=== PATIENT | female | born 1960 | race Caucasian/White ===

== ENCOUNTER 2016-07-14 01:54 | Inpatient (IN) | payer MEDICAID ==
[~2016-07-14] VITALS: Ht 165.1 cm; Wt 63.1 kg
[2016-07-14] MEDS ORDERED: ALBUTEROL SULFATE 2.5 MG/0.5 ML NEB SOLUTION NEB ONE (02:00)
[2016-07-14] MEDS ORDERED: IPRATROPIUM BROMIDE 0.5 MG/2.5 ML NEB SOLUTION NEB ONE (02:00)
[2016-07-14] MEDS ORDERED: SODIUM BICARBONATE [ADULT] 8.4% 50 MEQ/50 ML SYRINGE IVP ONE ×3 (02:15→12:00)
[2016-07-14] MEDS ORDERED: CALCIUM CHLORIDE 100 MG/ML 10 ML SYRINGE IVP ONE ×2 (02:15→12:00)
[2016-07-14] MEDS ORDERED: SODIUM CHLORIDE 0.9% 1,000 ML IV ONE (02:15)
[2016-07-14 02:20] LABS: BASOPHILS # (AUTO) 0.07 K/uL (0.00-0.20); BASOPHILS % (AUTO) 0.7 % (0.0-2.0); EOSINOPHILS # (AUTO) 0.16 K/uL (0.00-0.70); EOSINOPHILS % (AUTO) 1.61 % (1.0-6.0); HEMATOCRIT 25.8 % (36-46); HEMOGLOBIN 8.2 g/dL (12.0-16.0); LYMPHOCYTES # (AUTO) 1.4 K/uL (1.0-4.8); LYMPHOCYTES % (AUTO) 14.2 % (22.0-44.0); MEAN CORPUSCULAR HEMOGLOBIN 29.6 pg (26.0-34.0); MEAN CORPUSCULAR HGB CONC 31.7 G/dL (31.0-37.0); MEAN CORPUSCULAR VOLUME 93 fL (80-100); MONOCYTES # (AUTO) 0.7 K/uL (0.1-1.0); MONOCYTES % (AUTO) 7.2 % (2.0-9.0); NEUTROPHILS # (AUTO) 7.4 K/uL (1.8-7.7); NEUTROPHILS % (AUTO) 76.3 % (40.0-70.0); PLATELET COUNT (AUTO) 476 K/uL (150-450); RED BLOOD CELL COUNT(AUTO) 2.76 MIL/uL (4.00-5.20); RED CELL DISTRIBUTION WIDTH 16.4 % (11.5-14.5); WHITE BLOOD COUNT (AUTO) 9.7 K/uL (4.5-11.0)
[2016-07-14] MEDS ORDERED: BUME1TAB30 PO (02:21)
[2016-07-14] MEDS ORDERED: SENN-30 PO (02:21)
[2016-07-14] MEDS ORDERED: LEVO25TA9 PO (02:21)
[2016-07-14] MEDS ORDERED: ASPI-556 PO (02:21)
[2016-07-14] MEDS ORDERED: CARB200T PO (02:21)
[2016-07-14] MEDS ORDERED: HYD25 PO (02:21)
[2016-07-14] MEDS ORDERED: FERR-89 PO (02:21)
[2016-07-14] MEDS ORDERED: SITA25 PO (02:21)
[2016-07-14] MEDS ORDERED: LANS30 PO (02:21)
[2016-07-14] MEDS ORDERED: ATOR20TA86 PO (02:21)
[2016-07-14] MEDS ORDERED: INSU100V SQ (02:21)
[2016-07-14] MEDS ORDERED: DILT90SR PO (02:21)
[2016-07-14 02:23] LABS: ABG A-A DIFF O2 585.8 mmHg (10-20.0); ABG BASE EXCESS 5.7 mmol/L (-2.0-3.0); ABG HCO3 28.9 mmol/L (22.0-26.0); ABG OXYHEMOGLOBIN 95.8 % (94.0-100.0); ABG PCO2 49 mmHg (35-45); ABG PH 7.409 (7.35-7.450); TEMPERATURE, FAHRENHEIT, BG 93.3 FAHREN (96.0-98.6)
[2016-07-14 02:25] LABS: ALLEN TEST, BLOOD GAS Positive; IPAP, BG 14 cm H2O
[2016-07-14 02:31] LABS: PROTHROMBIN TIME 10.7 SEC (9.4-11.6)
[2016-07-14 02:37] LABS: ALANINE AMINOTRANSFERASE 17 U/L (12-78); ALBUMIN 1.3 g/dL (3.4-5.0); ANION GAP 4 mmol/L (8-16); ASPARTATE AMINOTRANSFERASE 13 U/L (15-37); BILIRUBIN,TOTAL 0.3 mg/dL (0.1-1.0); CALCIUM, TOTAL 7.4 mg/dL (8.8-10.5); CARBON DIOXIDE 30 mmol/L (22-29); CHLORIDE 103 mmol/L (98-107); CREATINE KINASE, TOTAL 57 U/L (26-192); CREATININE 5.94 mg/dL (0.60-1.30); GLOMERULAR FILTR. RATE CALC 7 mL/min (>60); SODIUM SERUM 137 mmol/L (136-145); TOTAL PROTEIN, SERUM 6.8 g/dL (6.4-8.2); UREA NITROGEN, BLOOD 90 mg/dL (7-18)
[2016-07-14 02:39] LABS: AMMONIA < 10 umol/L (11-32); TROPONIN I < 0.02 ng/mL (0.00-0.05)
[2016-07-14] MEDS ORDERED: DEXTROSE 50%-WATER 25 GM/50 ML SYRINGE IVP ONE ×2 (02:45→08:00)
[2016-07-14] MEDS ORDERED: ALBUTEROL SULFATE 5 MG/ML 20 ML NEB SOLN [BULK] NEB ONE (02:45)
[2016-07-14] MEDS ORDERED: INSULIN REGULAR, HUMAN 100 UNITS/ML IVP ONE (02:45)
[2016-07-14] MEDS ORDERED: SODIUM POLYSTYRENE SULFONATE 15 GM/60 ML SUSPENSION BOTTLE PR ONE (02:45)
[2016-07-14 02:49] LABS: LACTIC ACID 1.5 mmol/L (0.4-2.0)
[2016-07-14] MEDS ORDERED: 0.9% SODIUM CHLORIDE 5 ML NEB SOLUTION NEB ONE (03:08)
[2016-07-14] MEDS ORDERED: LORazepam 2 MG/ML VIAL ONE (03:51)
[2016-07-14] MEDS ORDERED: HEPARIN SODIUM,PORCINE 5,000 UNITS/ML VIAL IVP ONE (04:00)
[2016-07-14] MEDS ORDERED: LORazepam 2 MG/ML VIAL IVP ONE (04:00)
[2016-07-14] MEDS ORDERED: BUMETANIDE 0.25 MG/ML 10 ML VIAL IVP ONE (04:15)
[2016-07-14] MEDS ORDERED: HEPARIN SODIUM,PORCINE 1,000 UNITS/ML VIAL ONE (04:52)
[2016-07-14] MEDS: SODIUM POLYSTYRENE SULFONATE 15 GM/60 ML SUSPENSION BOTTLE NG ONE ×2 (05:06→05:36)
[2016-07-14 05:16] LABS: ABG A-A DIFF O2 149.1 mmHg (10-20.0); ABG BASE EXCESS 3.3 mmol/L (-2.0-3.0); ABG HCO3 26.9 mmol/L (22.0-26.0); ABG OXYHEMOGLOBIN 89.2 % (94.0-100.0); ABG PCO2 47 mmHg (35-45); ABG PH 7.394 (7.35-7.450); TEMPERATURE, FAHRENHEIT, BG 94.3 FAHREN (96.0-98.6)
[2016-07-14 05:17] LABS: ALLEN TEST, BLOOD GAS Positive
[2016-07-14 05:23] LABS: CALCIUM, TOTAL 7.8 mg/dL (8.8-10.5); CREATININE 5.85 mg/dL (0.60-1.30)
[2016-07-14 05:23] LABS: APPEARANCE,URINE TURBID (CLEAR); GLUCOSE, URINE (UA) NEGATIVE (NEGATIVE); KETONES,URINE NEGATIVE (NEGATIVE); LEUKOCYTE ESTERASE ,URINE LARGE (NEGATIVE); OCCULT BLOOD,URINE LARGE (NEGATIVE); PROTEIN,URINE SEE CONFIRM (NEGATIVE)
[2016-07-14 05:26] LABS: ADD UA MICROSCOPIC YES
[2016-07-14 05:30] LABS: POTASSIUM 6.4 mmol/L (3.5-5.1)
[2016-07-14 06:00] LABS: WBC,URINE 51-100 /HPF (0-5)
[2016-07-14] MEDS ORDERED: 0.9% SODIUM CHLORIDE 10 ML SYRINGE IVP PRN ×2 (06:00→18:15)
[2016-07-14] MEDS ORDERED: ONDANSETRON HCL 4 MG/2 ML VIAL IVP PRN (06:00)
[2016-07-14 06:01] LABS: SQUAMOUS EPITHELIAL CELL,UR Few /LPF (None Seen)
[2016-07-14 06:03] LABS: SULFOSALICYLIC ACID,URINE 3+ (Negative)
[2016-07-14] MEDS ORDERED: CefTRIAXone 1 GM/DEXTROSE 50 ML IV ONE (06:15)
[2016-07-14 08:00] VITALS: BP 151/42
[2016-07-14] MEDS ORDERED: MANNITOL 25%-12.5 GM/50 ML VIAL IVP PRN (08:00)
[2016-07-14 08:01] LABS: GLUCOSE,POINT OF CARE 53 MG/DL (70-110)
[2016-07-14 08:57] LABS: GLUCOSE,POINT OF CARE 112 MG/DL (70-110)
[2016-07-14 10:53] LABS: CALCIUM, TOTAL 7.7 mg/dL (8.8-10.5); CREATININE 4.46 mg/dL (0.60-1.30); POTASSIUM 5.1 mmol/L (3.5-5.1)
[2016-07-14] MEDS ORDERED: DILT180C63 PO (10:53)
[2016-07-14 10:57] LABS: MAGNESIUM 2.8 mg/dL (1.80-2.40); PHOSPHORUS 5.4 mg/dL (2.5-4.9)
[2016-07-14] MEDS: BUMETANIDE 0.25 MG/ML 10 ML VIAL IVP SCH ×2 (11:17→21:45)
[2016-07-14] MEDS: PANTOPRAZOLE SODIUM 40 MG/VIAL IVP SCH (11:17)
[2016-07-14] MEDS: CefTRIAXone 1 GM/DEXTROSE 50 ML IV SCH (11:17)
[2016-07-14 12:00] VITALS: BP 116/62
[2016-07-14] MEDS ORDERED: HEPARIN SODIUM,PORCINE 1,000 UNITS/ML VIAL IVP ONE (12:00)
[2016-07-14] MEDS: CarBAMazepine 200 MG TABLET PO SCH ×2 (15:04→21:44)
[2016-07-14] MEDS: HydrOXYzine HCL 25 MG TABLET PO SCH ×2 (15:04→18:41)
[2016-07-14 16:00] VITALS: BP 138/93
[2016-07-14 17:27] VITALS: BP 132/67
[2016-07-14] MEDS: INSULIN ASPART 100 UNITS/ML SQ PRN (18:43)
[2016-07-14 18:53] LABS: CALCIUM, TOTAL 7.5 mg/dL (8.8-10.5); CREATININE 4.54 mg/dL (0.60-1.30)
[2016-07-14 19:28] VITALS: BP 126/72
[2016-07-14 20:07] LABS: GLUCOSE,POINT OF CARE 103 MG/DL (70-110)
[2016-07-15] VITALS (10 sets, daily range): BP systolic 132–149; BP diastolic 61–85
[2016-07-15] MEDS ORDERED: VANCOMYCIN HCL 1 GM/D5% WATER 200 ML IV ONE
[2016-07-15] MEDS ORDERED: VANCOMYCIN HCL 1 GM/D5% WATER 200 ML IV PRN (00:15)
[2016-07-15] MEDS ORDERED: SODIUM CHLORIDE 0.9% 500 ML IV ONE ×2 (00:16→12:04)
[2016-07-15] MEDS ORDERED: VANCOMYCIN HCL 1.25 GM in DEXTROSE 5%-WATER 250 ML IV ONE (00:30)
[2016-07-15] MEDS: HydrOXYzine HCL 25 MG TABLET PO SCH ×5 (00:39→23:31)
[2016-07-15] MEDS: INSULIN ASPART 100 UNITS/ML SQ PRN ×2 (06:08→12:25)
[2016-07-15] MEDS ORDERED: LEVOTHYROXINE SODIUM 25 MCG TABLET PO SCH (06:30)
[2016-07-15 07:46] LABS: HEMOGLOBIN A1C 5.1 % (4.5-6.2)
[2016-07-15 07:47] LABS: BASOPHILS # (AUTO) 0.02 K/uL (0.00-0.20); BASOPHILS % (AUTO) 0.2 % (0.0-2.0); EOSINOPHILS # (AUTO) 0.07 K/uL (0.00-0.70); EOSINOPHILS % (AUTO) 0.58 % (1.0-6.0); LYMPHOCYTES # (AUTO) 0.8 K/uL (1.0-4.8); MEAN CORPUSCULAR HEMOGLOBIN 30.3 pg (26.0-34.0); MEAN CORPUSCULAR VOLUME 92 fL (80-100); MONOCYTES % (AUTO) 8.2 % (2.0-9.0); NEUTROPHILS # (AUTO) 10.1 K/uL (1.8-7.7); NEUTROPHILS % (AUTO) 84.1 % (40.0-70.0); PLATELET COUNT (AUTO) 350 K/uL (150-450); RED BLOOD CELL COUNT(AUTO) 2.27 MIL/uL (4.00-5.20); RED CELL DISTRIBUTION WIDTH 16.6 % (11.5-14.5); WHITE BLOOD COUNT (AUTO) 12.1 K/uL (4.5-11.0)
[2016-07-15 08:01] LABS: GLUCOSE COMMENT 1 Received Meds; GLUCOSE,POINT OF CARE 141 MG/DL (70-110)
[2016-07-15 08:12] LABS: CALCIUM, TOTAL 7.1 mg/dL (8.8-10.5); CHOL/HDL RATIO 1.6 (3.9-5.7); CREATININE 4.62 mg/dL (0.60-1.30); MAGNESIUM 2.8 mg/dL (1.80-2.40); PHOSPHORUS 5.7 mg/dL (2.5-4.9); POTASSIUM 4.7 mmol/L (3.5-5.1); THYROID STIMULATING HORMONE 6.48 uIU/mL (0.36-3.74)
[2016-07-15 08:16] LABS: HEMOGLOBIN 6.9 g/dL (12.0-16.0)
[2016-07-15 08:17] LABS: HEMATOCRIT 20.8 % (36-46)
[2016-07-15] MEDS: DILTIAZEM HCL CD 180 MG ER CAPSULE PO SCH (10:02)
[2016-07-15] MEDS: FERROUS SULFATE 325 MG EC TABLET PO SCH (10:02)
[2016-07-15] MEDS: BUMETANIDE 0.25 MG/ML 10 ML VIAL IVP SCH ×2 (10:06→20:05)
[2016-07-15] MEDS: ASPIRIN 81 MG CHEWABLE TABLET PO SCH (10:07)
[2016-07-15] MEDS: PANTOPRAZOLE SODIUM 40 MG/VIAL IVP SCH (10:07)
[2016-07-15] MEDS: SitaGLIPtin PHOSPHATE 25 MG TABLET PO SCH (10:08)
[2016-07-15] MEDS: ATORVASTATIN CALCIUM 20 MG TABLET PO SCH (10:08)
[2016-07-15] MEDS: SENNA/DOCUSATE SODIUM 187-50 MG TABLET PO SCH (10:09)
[2016-07-15 10:12] LABS: HEMATOCRIT 23.2 % (36-46); HEMOGLOBIN 7.3 g/dL (12.0-16.0)
[2016-07-15] MEDS: SOD FERRIC GLUC COMPLX/SUCROSE 125 MG in SODIUM CHLORIDE 0.9% 100 ML IV SCH (10:31)
[2016-07-15] MEDS ORDERED: HEPARIN SODIUM,PORCINE 1,000 UNITS/ML VIAL IVP ONE ×3 (12:00→12:30)
[2016-07-15] MEDS ORDERED: MANNITOL 25%-12.5 GM/50 ML VIAL IVP PRN (12:30)
[2016-07-15 13:26] LABS: GLUCOSE,POINT OF CARE 93 MG/DL (70-110)
[2016-07-15] MEDS: CefTRIAXone 1 GM/DEXTROSE 50 ML IV SCH (16:06)
[2016-07-15] MEDS: INSULIN REGULAR, HUMAN 100 UNITS/ML SQ PRN (17:44)
[2016-07-15] MEDS ORDERED: AMINO ACIDS/PROTEIN HYDROLYS 30 ML TUBE NG SCH (18:00)
[2016-07-15] MEDS ORDERED: IVERMECTIN 3 MG TABLET PO ONE (22:30)
[2016-07-16] MEDS: INSULIN REGULAR, HUMAN 100 UNITS/ML SQ PRN (00:18)
[2016-07-16 04:25] VITALS: BP 143/79
[2016-07-16] MEDS: HydrOXYzine HCL 25 MG TABLET PO SCH ×4 (05:36→23:52)
[2016-07-16] MEDS: LEVOTHYROXINE SODIUM 50 MCG TABLET PO SCH (05:36)
[2016-07-16 07:49] LABS: BASOPHILS % (AUTO) 0.1 % (0.0-2.0); EOSINOPHILS % (AUTO) 0.3 % (1.0-6.0); HEMATOCRIT 26.9 % (36-46); HEMOGLOBIN 8.6 g/dL (12.0-16.0); LYMPHOCYTES # (AUTO) 1.1 K/uL (1.0-4.8); LYMPHOCYTES % (AUTO) 6.5 % (22.0-44.0); MEAN CORPUSCULAR HEMOGLOBIN 29.8 pg (26.0-34.0); MEAN CORPUSCULAR VOLUME 93 fL (80-100); MONOCYTES # (AUTO) 1.5 K/uL (0.1-1.0); MONOCYTES % (AUTO) 8.3 % (2.0-9.0); NEUTROPHILS # (AUTO) 14.9 K/uL (1.8-7.7); NEUTROPHILS % (AUTO) 84.8 % (40.0-70.0); PLATELET COUNT (AUTO) 334 K/uL (150-450); RED CELL DISTRIBUTION WIDTH 16.3 % (11.5-14.5); WHITE BLOOD COUNT (AUTO) 17.6 K/uL (4.5-11.0)
[2016-07-16 07:51] VITALS: BP 139/71
[2016-07-16 08:06] LABS: CALCIUM, TOTAL 7.9 mg/dL (8.8-10.5); CREATININE 3.18 mg/dL (0.60-1.30); MAGNESIUM 2.4 mg/dL (1.80-2.40); PHOSPHORUS 4.1 mg/dL (2.5-4.9); POTASSIUM 3.8 mmol/L (3.5-5.1)
[2016-07-16] MEDS: BUMETANIDE 0.25 MG/ML 10 ML VIAL IVP SCH ×2 (09:26→20:55)
[2016-07-16] MEDS: PANTOPRAZOLE SODIUM 40 MG/VIAL IVP SCH (09:26)
[2016-07-16] MEDS: ASPIRIN 81 MG CHEWABLE TABLET PO SCH (09:26)
[2016-07-16] MEDS: SitaGLIPtin PHOSPHATE 25 MG TABLET PO SCH (09:26)
[2016-07-16] MEDS: DILTIAZEM HCL CD 180 MG ER CAPSULE PO SCH (09:26)
[2016-07-16] MEDS: FERROUS SULFATE 325 MG EC TABLET PO SCH (09:27)
[2016-07-16] MEDS: SENNA/DOCUSATE SODIUM 187-50 MG TABLET PO SCH (09:27)
[2016-07-16] MEDS: VITAMIN B COMP/VIT C/FOLIC ACID CAPSULE NG SCH (09:27)
[2016-07-16] MEDS: SOD FERRIC GLUC COMPLX/SUCROSE 125 MG in SODIUM CHLORIDE 0.9% 100 ML IV SCH (09:31)
[2016-07-16] MEDS: EPOETIN ALFA 10,000 UNITS/ML VIAL SQ SCH (09:31)
[2016-07-16] MEDS: MINERAL OIL/PETROLATUM 120 GM CREAM TP SCH (09:32)
[2016-07-16] MEDS: ATORVASTATIN CALCIUM 20 MG TABLET PO SCH (09:35)
[2016-07-16] MEDS: AMINO ACIDS/PROTEIN HYDROLYS 30 ML TUBE NG SCH ×2 (09:40→18:30)
[2016-07-16 11:39] VITALS: BP 143/86
[2016-07-16] MEDS: CefTRIAXone 1 GM/DEXTROSE 50 ML IV SCH (11:43)
[2016-07-16 12:12] LABS: TOTAL PROTEIN, SERUM 6.8 g/dL (6.4-8.2)
[2016-07-16 12:39] LABS: IGG (IMMUNOFIXATION) 2008 mg/dL (700-1600)
[2016-07-16] MEDS ORDERED: INDIUM IN-111 OXYQUINOLINE/.5MCL ISOTOPE 1 EA INJ INJ ONE (15:25)
[2016-07-16] MEDS: VITAMINS A & D 60 GM OINTMENT TP SCH ×2 (17:38→22:01)
[2016-07-16 18:03] VITALS: BP 155/74
[2016-07-16] MEDS: CefoTEtan DISODIUM 0.5 GM in DEXTROSE 5%-WATER 50 ML IV SCH (18:33)
[2016-07-16 18:37] LABS: GLUCOSE,POINT OF CARE 136 MG/DL (70-110)
[2016-07-16 18:47] LABS: GLUCOSE,POINT OF CARE 140 MG/DL (70-110)
[2016-07-16 18:59] LABS: APPEARANCE,UNSPUN,BODY FLUID CLOUDY (CLEAR)
[2016-07-16 19:00] LABS: COLOR,BODY FLUID YELLOW (LT YELLOW); PH, BODY FLUID 7
[2016-07-16 19:21] VITALS: BP 151/71
[2016-07-16] MEDS: INSULIN ASPART 100 UNITS/ML SQ PRN (20:35)
[2016-07-16 23:27] VITALS: BP 143/75
[2016-07-17] MEDS: HYDROCODONE/ACETAMINOPHEN 5-325 MG TABLET PO PRN ×2 (00:07→06:22)
[2016-07-17 00:31] LABS: GLUCOSE COMMENT 1 Received Meds; GLUCOSE,POINT OF CARE 158 MG/DL (70-110)
[2016-07-17 04:34] VITALS: BP 139/71
[2016-07-17 04:48] LABS: ALBUMIN/GLOBULIN RAITO (PEP) 0.5 (0.7-1.7); ALPHA-1 GLOBULINS(PEP) 0.2 g/dL (0.0-0.4); ALPHA-2 GLOBULINS (PEP) 0.7 g/dL (0.4-1.0); BETA (PEP) 0.7 g/dL (0.7-1.3); GLOBULIN TOTAL (PEP) 3.7 g/dL (2.2-3.9); M-SPIKE (PEP) Not Observed g/dL (Not Observed); TOTAL PROTEIN 5.5 g/dL (6.0-8.5)
[2016-07-17] MEDS: DEXTROSE 50%-WATER 25 GM/50 ML SYRINGE IVP PRN (06:15)
[2016-07-17] MEDS: HydrOXYzine HCL 25 MG TABLET PO SCH ×3 (06:22→18:07)
[2016-07-17 06:25] LABS: BASOPHILS % (AUTO) 1.1 % (0.0-2.0); EOSINOPHILS % (AUTO) 3.6 % (1.0-6.0); HEMATOCRIT 26.5 % (36-46); HEMOGLOBIN 8.3 g/dL (12.0-16.0); LYMPHOCYTES # (AUTO) 1.3 K/uL (1.0-4.8); LYMPHOCYTES % (AUTO) 10.5 % (22.0-44.0); MEAN CORPUSCULAR HEMOGLOBIN 29.2 pg (26.0-34.0); MEAN CORPUSCULAR HGB CONC 31.4 G/dL (31.0-37.0); MEAN CORPUSCULAR VOLUME 93 fL (80-100); MONOCYTES # (AUTO) 1.2 K/uL (0.1-1.0); NEUTROPHILS # (AUTO) 9.4 K/uL (1.8-7.7); NEUTROPHILS % (AUTO) 74.8 % (40.0-70.0); PLATELET COUNT (AUTO) 320 K/uL (150-450); RED BLOOD CELL COUNT(AUTO) 2.85 MIL/uL (4.00-5.20); RED CELL DISTRIBUTION WIDTH 15.8 % (11.5-14.5); WHITE BLOOD COUNT (AUTO) 12.5 K/uL (4.5-11.0)
[2016-07-17] MEDS: LEVOTHYROXINE SODIUM 50 MCG TABLET PO SCH (06:37)
[2016-07-17 07:19] LABS: CALCIUM, TOTAL 7.5 mg/dL (8.8-10.5); CREATININE 3.59 mg/dL (0.60-1.30); MAGNESIUM 2.3 mg/dL (1.80-2.40); PHOSPHORUS 4.1 mg/dL (2.5-4.9); POTASSIUM 3.9 mmol/L (3.5-5.1)
[2016-07-17 07:37] LABS: COMPLEMENT C3 56 mg/dL (82-167); COMPLEMENT C4 41 mg/dL (14-44)
[2016-07-17] MEDS: AMINO ACIDS/PROTEIN HYDROLYS 30 ML TUBE NG SCH ×2 (08:10→18:03)
[2016-07-17 08:13] VITALS: BP 143/58
[2016-07-17] MEDS ORDERED: VANCOMYCIN HCL 1.25 GM in DEXTROSE 5%-WATER 250 ML IV ONE (08:15)
[2016-07-17] MEDS: VITAMINS A & D 60 GM OINTMENT TP SCH ×2 (08:17→21:31)
[2016-07-17] MEDS ORDERED: SODIUM CHLORIDE 0.9% 2,000 ML IV ONE (09:37)
[2016-07-17 12:03] VITALS: BP 159/84
[2016-07-17] MEDS ORDERED: SODIUM CHLORIDE 0.9% 1,000 ML IV ONE (12:53)
[2016-07-17] MEDS: SitaGLIPtin PHOSPHATE 25 MG TABLET PO SCH (14:45)
[2016-07-17] MEDS: DILTIAZEM HCL CD 180 MG ER CAPSULE PO SCH (14:45)
[2016-07-17] MEDS: SENNA/DOCUSATE SODIUM 187-50 MG TABLET PO SCH (14:46)
[2016-07-17] MEDS: PANTOPRAZOLE SODIUM 40 MG/VIAL IVP SCH (14:46)
[2016-07-17] MEDS: BUMETANIDE 0.25 MG/ML 10 ML VIAL IVP SCH ×2 (14:46→21:29)
[2016-07-17] MEDS: ATORVASTATIN CALCIUM 20 MG TABLET PO SCH (14:46)
[2016-07-17] MEDS: VITAMIN B COMP/VIT C/FOLIC ACID CAPSULE NG SCH (14:46)
[2016-07-17] MEDS: FERROUS SULFATE 325 MG EC TABLET PO SCH (14:46)
[2016-07-17] MEDS: MINERAL OIL/PETROLATUM 120 GM CREAM TP SCH (14:47)
[2016-07-17] MEDS: SOD FERRIC GLUC COMPLX/SUCROSE 125 MG in SODIUM CHLORIDE 0.9% 100 ML IV SCH (14:49)
[2016-07-17 16:09] VITALS: BP 155/75
[2016-07-17] MEDS ORDERED: HEPARIN SODIUM,PORCINE 1,000 UNITS/ML VIAL IVP ONE (16:44)
[2016-07-17] MEDS: CefoTEtan DISODIUM 0.5 GM in DEXTROSE 5%-WATER 50 ML IV SCH (18:13)
[2016-07-17 18:23] LABS: TOTAL PROTEIN,BODY FLUID,REF 1.8 g/dL
[2016-07-17 19:16] VITALS: BP 151/74
[2016-07-17 19:56] LABS: GLUCOSE,POINT OF CARE 91 MG/DL (70-110)
[2016-07-17] MEDS: INSULIN ASPART 100 UNITS/ML SQ PRN (21:35)
[2016-07-17 23:43] VITALS: BP 149/67
[2016-07-18] MEDS: HydrOXYzine HCL 25 MG TABLET PO SCH ×4 (00:13→20:25)
[2016-07-18 04:03] VITALS: BP 140/68
[2016-07-18] MEDS: LEVOTHYROXINE SODIUM 50 MCG TABLET PO SCH (05:57)
[2016-07-18] MEDS: INSULIN ASPART 100 UNITS/ML SQ PRN (06:02)
[2016-07-18 07:01] LABS: BASOPHILS # (AUTO) 0.03 K/uL (0.00-0.20); BASOPHILS % (AUTO) 0.3 % (0.0-2.0); EOSINOPHILS # (AUTO) 0.19 K/uL (0.00-0.70); EOSINOPHILS % (AUTO) 1.69 % (1.0-6.0); HEMATOCRIT 30.7 % (36-46); HEMOGLOBIN 9.9 g/dL (12.0-16.0); LYMPHOCYTES # (AUTO) 1.4 K/uL (1.0-4.8); LYMPHOCYTES % (AUTO) 12.1 % (22.0-44.0); MEAN CORPUSCULAR HEMOGLOBIN 30.1 pg (26.0-34.0); MEAN CORPUSCULAR HGB CONC 32.4 G/dL (31.0-37.0); MEAN CORPUSCULAR VOLUME 93 fL (80-100); MONOCYTES # (AUTO) 1.1 K/uL (0.1-1.0); MONOCYTES % (AUTO) 10.1 % (2.0-9.0); NEUTROPHILS # (AUTO) 8.6 K/uL (1.8-7.7); NEUTROPHILS % (AUTO) 75.9 % (40.0-70.0); PLATELET COUNT (AUTO) 336 K/uL (150-450); RED BLOOD CELL COUNT(AUTO) 3.31 MIL/uL (4.00-5.20); RED CELL DISTRIBUTION WIDTH 15.6 % (11.5-14.5); WHITE BLOOD COUNT (AUTO) 11.3 K/uL (4.5-11.0)
[2016-07-18 07:23] VITALS: BP 146/80
[2016-07-18 07:33] LABS: CALCIUM, TOTAL 7.6 mg/dL (8.8-10.5); CREATININE 2.33 mg/dL (0.60-1.30); MAGNESIUM 1.9 mg/dL (1.80-2.40); POTASSIUM 3.5 mmol/L (3.5-5.1)
[2016-07-18] MEDS: AMINO ACIDS/PROTEIN HYDROLYS 30 ML TUBE NG SCH ×2 (08:00→18:00)
[2016-07-18] MEDS: ATORVASTATIN CALCIUM 20 MG TABLET PO SCH (09:00)
[2016-07-18] MEDS: SENNA/DOCUSATE SODIUM 187-50 MG TABLET PO SCH (09:00)
[2016-07-18] MEDS: VITAMIN B COMP/VIT C/FOLIC ACID CAPSULE NG SCH (09:00)
[2016-07-18] MEDS: EPOETIN ALFA 10,000 UNITS/ML VIAL SQ SCH (09:00)
[2016-07-18 11:23] VITALS: BP 129/59
[2016-07-18] MEDS: PANTOPRAZOLE SODIUM 40 MG/VIAL IVP SCH (13:08)
[2016-07-18] MEDS: BUMETANIDE 0.25 MG/ML 10 ML VIAL IVP SCH ×2 (13:10→21:00)
[2016-07-18] MEDS: SOD FERRIC GLUC COMPLX/SUCROSE 125 MG in SODIUM CHLORIDE 0.9% 100 ML IV SCH (13:11)
[2016-07-18] MEDS: MINERAL OIL/PETROLATUM 120 GM CREAM TP SCH (13:24)
[2016-07-18] MEDS: VITAMINS A & D 60 GM OINTMENT TP SCH ×2 (13:24→20:26)
[2016-07-18] MEDS: MetroNIDAZOLE 500 MG TABLET PO SCH ×2 (15:11→20:26)
[2016-07-18] MEDS: FERROUS SULFATE 325 MG EC TABLET PO SCH (15:12)
[2016-07-18] MEDS: SitaGLIPtin PHOSPHATE 25 MG TABLET PO SCH (15:14)
[2016-07-18] MEDS: DILTIAZEM HCL CD 180 MG ER CAPSULE PO SCH (15:24)
[2016-07-18 16:22] VITALS: BP 140/66
[2016-07-18 16:53] LABS: GLUCOSE,POINT OF CARE 77 MG/DL (70-110)
[2016-07-18] MEDS: CefoTEtan DISODIUM 0.5 GM in DEXTROSE 5%-WATER 50 ML IV SCH (18:39)
[2016-07-18] MEDS: HYDROCODONE/ACETAMINOPHEN 5-325 MG TABLET PO PRN (18:39)
[2016-07-18 19:30] VITALS: BP 137/66
[2016-07-18 23:57] VITALS: BP 128/59
[2016-07-19 03:44] VITALS: BP 139/70
[2016-07-19] MEDS: HydrOXYzine HCL 25 MG TABLET PO SCH ×4 (06:00→17:25)
[2016-07-19 06:17] LABS: CALCIUM, TOTAL 7.5 mg/dL (8.8-10.5); CREATININE 2.83 mg/dL (0.60-1.30); POTASSIUM 3.2 mmol/L (3.5-5.1); TOTAL PROTEIN, SERUM 6.2 g/dL (6.4-8.2)
[2016-07-19] MEDS: LEVOTHYROXINE SODIUM 50 MCG TABLET PO SCH (06:30)
[2016-07-19 07:19] VITALS: BP 145/73
[2016-07-19] MEDS: AMINO ACIDS/PROTEIN HYDROLYS 30 ML TUBE NG SCH ×2 (08:00→18:00)
[2016-07-19] MEDS ORDERED: VANCOMYCIN HCL 1 GM/D5% WATER 200 ML IV ONE (08:00)
[2016-07-19 08:28] LABS: ALPHA-1 URINE (ELP) 2.9 %; ALPHA-2 URINE(ELP) 6.2 %; BETA URINE(ELP) 12.5 %; GAMMA URINE(ELP) 34.3 %; TOTAL PROTEIN URINE 379.5 mg/dL (Not Estab.)
[2016-07-19] MEDS: SENNA/DOCUSATE SODIUM 187-50 MG TABLET PO SCH (09:00)
[2016-07-19] MEDS: MetroNIDAZOLE 500 MG TABLET PO SCH ×3 (09:00→21:07)
[2016-07-19] MEDS: VITAMINS A & D 60 GM OINTMENT TP SCH (09:00)
[2016-07-19] MEDS: MINERAL OIL/PETROLATUM 120 GM CREAM TP SCH (10:00)
[2016-07-19] MEDS ORDERED: SODIUM CHLORIDE 0.9% 2,000 ML IV ONE (11:37)
[2016-07-19 11:59] LABS: GLUCOSE,POINT OF CARE 85 MG/DL (70-110)
[2016-07-19] MEDS ORDERED: ALBUMIN HUMAN 25%-12.5GM/50ML IV BOTTLE IV PRN (13:15)
[2016-07-19] MEDS ORDERED: MANNITOL 25%-12.5 GM/50 ML VIAL IVP PRN (13:15)
[2016-07-19 13:26] LABS: APPEARANCE,UNSPUN,BODY FLUID HAZY (CLEAR)
[2016-07-19 13:27] LABS: COLOR,BODY FLUID YELLOW (LT YELLOW)
[2016-07-19 15:27] VITALS: BP 109/59
[2016-07-19] MEDS: SOD FERRIC GLUC COMPLX/SUCROSE 125 MG in SODIUM CHLORIDE 0.9% 100 ML IV SCH (16:04)
[2016-07-19] MEDS: DILTIAZEM HCL CD 180 MG ER CAPSULE PO SCH (17:14)
[2016-07-19] MEDS: FERROUS SULFATE 325 MG EC TABLET PO SCH (17:15)
[2016-07-19] MEDS: BUMETANIDE 0.25 MG/ML 10 ML VIAL IVP SCH ×2 (17:15→21:08)
[2016-07-19] MEDS: PANTOPRAZOLE SODIUM 40 MG/VIAL IVP SCH (17:16)
[2016-07-19] MEDS: SitaGLIPtin PHOSPHATE 25 MG TABLET PO SCH (17:16)
[2016-07-19] MEDS: VITAMIN B COMP/VIT C/FOLIC ACID CAPSULE NG SCH (17:16)
[2016-07-19] MEDS: ATORVASTATIN CALCIUM 20 MG TABLET PO SCH (17:16)
[2016-07-19] MEDS: CarBAMazepine 200 MG TABLET PO SCH ×2 (17:18→21:07)
[2016-07-19] MEDS: CefoTEtan DISODIUM 0.5 GM in DEXTROSE 5%-WATER 50 ML IV SCH (18:17)
[2016-07-19] MEDS: INSULIN ASPART 100 UNITS/ML SQ PRN ×2 (18:30→21:16)
[2016-07-19 20:09] VITALS: BP 124/64
[2016-07-20] VITALS (7 sets, daily range): BP systolic 120–142; BP diastolic 56–62
[2016-07-20] MEDS: HydrOXYzine HCL 25 MG TABLET PO SCH ×6 (00:17→23:35)
[2016-07-20] MEDS: VITAMINS A & D 60 GM OINTMENT TP SCH ×3 (00:18→21:31)
[2016-07-20] MEDS: LEVOTHYROXINE SODIUM 50 MCG TABLET PO SCH (06:30)
[2016-07-20 06:48] LABS: CALCIUM, TOTAL 7.8 mg/dL (8.8-10.5); CREATININE 2.01 mg/dL (0.60-1.30); POTASSIUM 3.4 mmol/L (3.5-5.1)
[2016-07-20] MEDS ORDERED: HEPARIN SODIUM,PORCINE 1,000 UNITS/ML 10 ML VIAL ONE (07:51)
[2016-07-20] MEDS ORDERED: HEPARIN SODIUM 1000 UNITS/NS 500 ML ONE (07:51)
[2016-07-20] MEDS ORDERED: LIDOCAINE HCL/PF 1% 30 ML VIAL ONE (07:51)
[2016-07-20] MEDS: AMINO ACIDS/PROTEIN HYDROLYS 30 ML TUBE NG SCH ×2 (08:00→18:00)
[2016-07-20] MEDS ORDERED: LIDOCAINE HCL 1%/EPI 1:200,000/PF 10 ML VIAL ONE (08:34)
[2016-07-20] MEDS ORDERED: MIDAZOLAM HCL 2 MG/2 ML VIAL ONE (08:35)
[2016-07-20] MEDS ORDERED: FentaNYL CITRATE-PF 100 MCG/2 ML VIAL ONE (08:35)
[2016-07-20] MEDS ORDERED: MIDAZOLAM HCL 2 MG/2 ML VIAL IVP ONE (09:33)
[2016-07-20] MEDS ORDERED: FentaNYL CITRATE-PF 100 MCG/2 ML VIAL IVP ONE (09:38)
[2016-07-20] MEDS: DILTIAZEM HCL CD 180 MG ER CAPSULE PO SCH ×2 (10:00→11:27)
[2016-07-20] MEDS: ATORVASTATIN CALCIUM 20 MG TABLET PO SCH ×2 (11:00→11:28)
[2016-07-20] MEDS: CarBAMazepine 200 MG TABLET PO SCH ×4 (11:00→21:07)
[2016-07-20] MEDS: FERROUS SULFATE 325 MG EC TABLET PO SCH ×2 (11:00→11:29)
[2016-07-20] MEDS: MetroNIDAZOLE 500 MG TABLET PO SCH ×4 (11:00→21:07)
[2016-07-20] MEDS: VITAMIN B COMP/VIT C/FOLIC ACID CAPSULE NG SCH ×2 (11:00→11:28)
[2016-07-20] MEDS: SENNA/DOCUSATE SODIUM 187-50 MG TABLET PO SCH ×2 (11:00→11:28)
[2016-07-20] MEDS: SitaGLIPtin PHOSPHATE 25 MG TABLET PO SCH ×2 (11:00→11:27)
[2016-07-20] MEDS: PANTOPRAZOLE SODIUM 40 MG/VIAL IVP SCH (11:26)
[2016-07-20] MEDS: BUMETANIDE 0.25 MG/ML 10 ML VIAL IVP SCH ×2 (11:26→21:07)
[2016-07-20] MEDS: EPOETIN ALFA 10,000 UNITS/ML VIAL SQ SCH (11:27)
[2016-07-20] MEDS: MINERAL OIL/PETROLATUM 120 GM CREAM TP SCH (11:31)
[2016-07-20] MEDS: SOD FERRIC GLUC COMPLX/SUCROSE 125 MG in SODIUM CHLORIDE 0.9% 100 ML IV SCH (12:00)
[2016-07-20] MEDS: HYDROCODONE/ACETAMINOPHEN 5-325 MG TABLET PO PRN (12:00)
[2016-07-20 13:53] LABS: GLUCOSE,POINT OF CARE 83 MG/DL (70-110)
[2016-07-20] MEDS: CefoTEtan DISODIUM 0.5 GM in DEXTROSE 5%-WATER 50 ML IV SCH (17:14)
[2016-07-20 19:33] LABS: TOTAL PROTEIN,BODY FLUID,REF 2.2 g/dL
[2016-07-20] MEDS ORDERED: 0.9% SODIUM CHLORIDE 10 ML SYRINGE IVP PRN (20:15)
[2016-07-20] MEDS: INSULIN ASPART 100 UNITS/ML SQ PRN (21:30)
[2016-07-21] VITALS (7 sets, daily range): BP systolic 139–153; BP diastolic 62–75
[2016-07-21] MEDS: HydrOXYzine HCL 25 MG TABLET PO SCH ×4 (06:22→23:47)
[2016-07-21] MEDS: LEVOTHYROXINE SODIUM 50 MCG TABLET PO SCH (06:22)
[2016-07-21 07:27] LABS: GLUCOSE COMMENT 1 Received Meds; GLUCOSE,POINT OF CARE 166 MG/DL (70-110)
[2016-07-21 07:27] LABS: GLUCOSE,POINT OF CARE 91 MG/DL (70-110)
[2016-07-21] MEDS: AMINO ACIDS/PROTEIN HYDROLYS 30 ML TUBE NG SCH ×2 (08:00→18:00)
[2016-07-21 09:03] LABS: BASOPHILS % (AUTO) 0.5 % (0.0-2.0); EOSINOPHILS % (AUTO) 3.3 % (1.0-6.0); HEMATOCRIT 27.5 % (36-46); HEMOGLOBIN 8.6 g/dL (12.0-16.0); LYMPHOCYTES # (AUTO) 1.3 K/uL (1.0-4.8); LYMPHOCYTES % (AUTO) 10.6 % (22.0-44.0); MEAN CORPUSCULAR HEMOGLOBIN 29.1 pg (26.0-34.0); MEAN CORPUSCULAR HGB CONC 31.2 G/dL (31.0-37.0); MEAN CORPUSCULAR VOLUME 93 fL (80-100); MONOCYTES # (AUTO) 1.5 K/uL (0.1-1.0); MONOCYTES % (AUTO) 11.6 % (2.0-9.0); NEUTROPHILS # (AUTO) 9.4 K/uL (1.8-7.7); PLATELET COUNT (AUTO) 341 K/uL (150-450); RED BLOOD CELL COUNT(AUTO) 2.94 MIL/uL (4.00-5.20); RED CELL DISTRIBUTION WIDTH 16.4 % (11.5-14.5); WHITE BLOOD COUNT (AUTO) 12.7 K/uL (4.5-11.0)
[2016-07-21 09:04] LABS: CALCIUM, TOTAL 7.7 mg/dL (8.8-10.5); CREATININE 2.54 mg/dL (0.60-1.30); POTASSIUM 3.3 mmol/L (3.5-5.1)
[2016-07-21] MEDS: HYDROCODONE/ACETAMINOPHEN 5-325 MG TABLET PO PRN ×2 (12:38→23:47)
[2016-07-21] MEDS: BUMETANIDE 0.25 MG/ML 10 ML VIAL IVP SCH ×2 (12:50→21:21)
[2016-07-21] MEDS: PANTOPRAZOLE SODIUM 40 MG/VIAL IVP SCH (12:50)
[2016-07-21] MEDS: SOD FERRIC GLUC COMPLX/SUCROSE 125 MG in SODIUM CHLORIDE 0.9% 100 ML IV SCH (12:55)
[2016-07-21] MEDS: DILTIAZEM HCL CD 180 MG ER CAPSULE PO SCH (15:46)
[2016-07-21] MEDS: ATORVASTATIN CALCIUM 20 MG TABLET PO SCH (15:47)
[2016-07-21] MEDS: SENNA/DOCUSATE SODIUM 187-50 MG TABLET PO SCH (15:47)
[2016-07-21] MEDS: SitaGLIPtin PHOSPHATE 25 MG TABLET PO SCH (15:47)
[2016-07-21] MEDS: FERROUS SULFATE 325 MG EC TABLET PO SCH (15:47)
[2016-07-21] MEDS: MetroNIDAZOLE 500 MG TABLET PO SCH ×3 (15:47→21:21)
[2016-07-21] MEDS: VITAMIN B COMP/VIT C/FOLIC ACID CAPSULE NG SCH (15:48)
[2016-07-21] MEDS: VITAMINS A & D 60 GM OINTMENT TP SCH ×2 (15:48→21:49)
[2016-07-21] MEDS: MINERAL OIL/PETROLATUM 120 GM CREAM TP SCH (15:49)
[2016-07-21] MEDS ORDERED: HEPARIN SODIUM,PORCINE 1,000 UNITS/ML VIAL IVP ONE ×2 (16:16→18:33)
[2016-07-21] MEDS: CefoTEtan DISODIUM 0.5 GM in DEXTROSE 5%-WATER 50 ML IV SCH (19:39)
[2016-07-21 20:12] LABS: GLUCOSE,POINT OF CARE 94 MG/DL (70-110)
[2016-07-21 20:12] LABS: GLUCOSE,POINT OF CARE 115 MG/DL (70-110)
[2016-07-21] MEDS: CarBAMazepine 200 MG TABLET PO SCH (21:21)
[2016-07-22 03:47] LABS: GLUCOSE,POINT OF CARE 100 MG/DL (70-110)
[2016-07-22 05:32] VITALS: BP 128/56
[2016-07-22] MEDS: HydrOXYzine HCL 25 MG TABLET PO SCH ×4 (05:37→23:32)
[2016-07-22] MEDS: LEVOTHYROXINE SODIUM 50 MCG TABLET PO SCH (05:37)
[2016-07-22] MEDS: DEXTROSE 50%-WATER 25 GM/50 ML SYRINGE IVP PRN (05:47)
[2016-07-22 07:12] LABS: GLUCOSE,POINT OF CARE 119 MG/DL (70-110)
[2016-07-22 07:12] LABS: GLUCOSE COMMENT 1 Juice/Food/D50 Given; GLUCOSE,POINT OF CARE 65 MG/DL (70-110)
[2016-07-22 07:25] VITALS: BP 128/58
[2016-07-22] MEDS ORDERED: VANCOMYCIN HCL 1 GM/D5% WATER 200 ML IV ONE (08:00)
[2016-07-22] MEDS: AMINO ACIDS/PROTEIN HYDROLYS 30 ML TUBE NG SCH ×2 (08:00→18:00)
[2016-07-22] MEDS: MetroNIDAZOLE 500 MG TABLET PO SCH ×3 (09:00→20:14)
[2016-07-22] MEDS: SENNA/DOCUSATE SODIUM 187-50 MG TABLET PO SCH (09:00)
[2016-07-22] MEDS ORDERED: IVERMECTIN 3 MG TABLET PO ONE (09:00)
[2016-07-22] MEDS: HYDROCODONE/ACETAMINOPHEN 5-325 MG TABLET PO PRN ×2 (09:28→23:31)
[2016-07-22] MEDS: BUMETANIDE 0.25 MG/ML 10 ML VIAL IVP SCH ×2 (09:28→20:14)
[2016-07-22] MEDS: DILTIAZEM HCL CD 180 MG ER CAPSULE PO SCH (09:30)
[2016-07-22] MEDS: PANTOPRAZOLE SODIUM 40 MG/VIAL IVP SCH (09:30)
[2016-07-22] MEDS: SitaGLIPtin PHOSPHATE 25 MG TABLET PO SCH (09:30)
[2016-07-22] MEDS: VITAMINS A & D 60 GM OINTMENT TP SCH ×2 (09:31→20:14)
[2016-07-22] MEDS: CarBAMazepine 200 MG TABLET PO SCH ×2 (09:31→20:14)
[2016-07-22] MEDS: MINERAL OIL/PETROLATUM 120 GM CREAM TP SCH (09:31)
[2016-07-22] MEDS: FERROUS SULFATE 325 MG EC TABLET PO SCH (09:32)
[2016-07-22] MEDS ORDERED: SODIUM CHLORIDE 0.9% 500 ML IV ONE (09:37)
[2016-07-22 11:56] VITALS: BP 129/55
[2016-07-22] MEDS: INSULIN ASPART 100 UNITS/ML SQ PRN ×2 (11:57→18:10)
[2016-07-22 16:45] VITALS: BP 130/56
[2016-07-22] MEDS: ATORVASTATIN CALCIUM 20 MG TABLET PO SCH (17:30)
[2016-07-22] MEDS: SOD FERRIC GLUC COMPLX/SUCROSE 125 MG in SODIUM CHLORIDE 0.9% 100 ML IV SCH (17:32)
[2016-07-22] MEDS: VITAMIN B COMP/VIT C/FOLIC ACID CAPSULE NG SCH (17:32)
[2016-07-22] MEDS: CefoTEtan DISODIUM 0.5 GM in DEXTROSE 5%-WATER 50 ML IV SCH (18:15)
[2016-07-22 20:40] VITALS: BP 140/63
[2016-07-22 23:23] VITALS: BP 139/64
[2016-07-23 00:28] LABS: GLUCOSE,POINT OF CARE 109 MG/DL (70-110)
[2016-07-23 05:57] VITALS: BP 134/64
[2016-07-23 05:57] LABS: GLUCOSE COMMENT 1 Received Meds; GLUCOSE,POINT OF CARE 200 MG/DL (70-110)
[2016-07-23] MEDS: HydrOXYzine HCL 25 MG TABLET PO SCH ×3 (06:08→17:15)
[2016-07-23] MEDS: LEVOTHYROXINE SODIUM 50 MCG TABLET PO SCH (06:08)
[2016-07-23 07:08] LABS: GLUCOSE COMMENT 1 Juice/Food/D50 Given; GLUCOSE,POINT OF CARE 73 MG/DL (70-110)
[2016-07-23 07:45] VITALS: BP 144/66
[2016-07-23] MEDS ORDERED: AMINO ACIDS/PROTEIN HYDROLYS 30 ML TUBE PO SCH ×6 (08:00→18:00)
[2016-07-23] MEDS: FERROUS SULFATE 325 MG EC TABLET PO SCH (08:36)
[2016-07-23] MEDS: MetroNIDAZOLE 500 MG TABLET PO SCH ×3 (08:36→20:30)
[2016-07-23] MEDS: BUMETANIDE 0.25 MG/ML 10 ML VIAL IVP SCH ×2 (08:36→20:30)
[2016-07-23] MEDS: PANTOPRAZOLE SODIUM 40 MG/VIAL IVP SCH (08:36)
[2016-07-23] MEDS: CarBAMazepine 200 MG TABLET PO SCH ×2 (08:37→20:30)
[2016-07-23] MEDS: VITAMIN B COMP/VIT C/FOLIC ACID CAPSULE NG SCH (08:37)
[2016-07-23] MEDS: HYDROCODONE/ACETAMINOPHEN 5-325 MG TABLET PO PRN ×3 (08:38→17:16)
[2016-07-23] MEDS: DILTIAZEM HCL CD 180 MG ER CAPSULE PO SCH (08:39)
[2016-07-23] MEDS: SitaGLIPtin PHOSPHATE 25 MG TABLET PO SCH (08:39)
[2016-07-23] MEDS: SENNA/DOCUSATE SODIUM 187-50 MG TABLET PO SCH (08:40)
[2016-07-23 11:45] VITALS: BP 136/70
[2016-07-23] MEDS: AMINO ACIDS/PROTEIN HYDROLYS 30 ML TUBE PO SCH (12:00)
[2016-07-23] MEDS: EPOETIN ALFA 10,000 UNITS/ML VIAL SQ SCH (12:08)
[2016-07-23] MEDS: INSULIN ASPART 100 UNITS/ML SQ PRN ×3 (12:33→20:46)
[2016-07-23] MEDS: VITAMINS A & D 60 GM OINTMENT TP SCH ×2 (13:20→20:30)
[2016-07-23] MEDS: ATORVASTATIN CALCIUM 20 MG TABLET PO SCH (13:20)
[2016-07-23] MEDS: MINERAL OIL/PETROLATUM 120 GM CREAM TP SCH (13:21)
[2016-07-23 15:53] VITALS: BP 151/64
[2016-07-23 17:17] LABS: GLUCOSE COMMENT 1 Received Meds; GLUCOSE,POINT OF CARE 162 MG/DL (70-110)
[2016-07-23 20:02] VITALS: BP 108/54
[2016-07-23 20:02] LABS: GLUCOSE COMMENT 1 Received Meds; GLUCOSE,POINT OF CARE 163 MG/DL (70-110)
[2016-07-23] MEDS: MUPIROCIN CALCIUM 2% 22 GM OINTMENT NASAL SCH (20:31)
[2016-07-23] MEDS: CARBAMIDE PEROXIDE 6.5% 15 ML OTIC SOLUTION AU SCH (20:32)
[2016-07-23 23:26] VITALS: BP 122/61
[2016-07-24 00:37] LABS: GLUCOSE COMMENT 1 Received Meds; GLUCOSE,POINT OF CARE 157 MG/DL (70-110)
[2016-07-24 04:53] VITALS: BP 126/58
[2016-07-24] MEDS: LEVOTHYROXINE SODIUM 50 MCG TABLET PO SCH (05:38)
[2016-07-24] MEDS: HydrOXYzine HCL 25 MG TABLET PO SCH ×4 (05:38→18:09)
[2016-07-24 07:25] VITALS: BP 130/54
[2016-07-24 07:42] LABS: GLUCOSE,POINT OF CARE 85 MG/DL (70-110)
[2016-07-24] MEDS: SENNA/DOCUSATE SODIUM 187-50 MG TABLET PO SCH (08:31)
[2016-07-24] MEDS: SitaGLIPtin PHOSPHATE 25 MG TABLET PO SCH (08:31)
[2016-07-24] MEDS: FERROUS SULFATE 325 MG EC TABLET PO SCH (08:31)
[2016-07-24] MEDS: ATORVASTATIN CALCIUM 20 MG TABLET PO SCH (08:31)
[2016-07-24] MEDS: CarBAMazepine 200 MG TABLET PO SCH ×2 (08:31→21:06)
[2016-07-24] MEDS: MetroNIDAZOLE 500 MG TABLET PO SCH ×3 (08:31→21:06)
[2016-07-24] MEDS: MUPIROCIN CALCIUM 2% 22 GM OINTMENT NASAL SCH ×3 (08:31→21:06)
[2016-07-24] MEDS: CARBAMIDE PEROXIDE 6.5% 15 ML OTIC SOLUTION AU SCH ×2 (08:32→21:06)
[2016-07-24] MEDS: PANTOPRAZOLE SODIUM 40 MG/VIAL IVP SCH (08:32)
[2016-07-24] MEDS: MINERAL OIL/PETROLATUM 120 GM CREAM TP SCH (08:33)
[2016-07-24] MEDS: VITAMINS A & D 60 GM OINTMENT TP SCH ×2 (08:33→21:07)
[2016-07-24] MEDS: BUMETANIDE 0.25 MG/ML 10 ML VIAL IVP SCH ×2 (09:00→21:06)
[2016-07-24 11:14] VITALS: BP 144/74
[2016-07-24] MEDS ORDERED: MANNITOL 25%-12.5 GM/50 ML VIAL IVP PRN (11:15)
[2016-07-24] MEDS ORDERED: HEPARIN SODIUM,PORCINE 1,000 UNITS/ML VIAL IVP ONE ×3 (11:15→16:56)
[2016-07-24] MEDS: HYDROCODONE/ACETAMINOPHEN 5-325 MG TABLET PO PRN ×2 (11:41→21:07)
[2016-07-24] MEDS: AMINO ACIDS/PROTEIN HYDROLYS 30 ML TUBE PO SCH ×2 (13:58→18:00)
[2016-07-24] MEDS: DILTIAZEM HCL CD 180 MG ER CAPSULE PO SCH (13:58)
[2016-07-24] MEDS: VITAMIN B COMP/VIT C/FOLIC ACID CAPSULE NG SCH (13:58)
[2016-07-24 15:19] VITALS: BP 116/51
[2016-07-24] MEDS: INSULIN ASPART 100 UNITS/ML SQ PRN ×2 (18:22→21:14)
[2016-07-24 20:38] LABS: GLUCOSE,POINT OF CARE 165 MG/DL (70-110)
[2016-07-24 20:38] LABS: GLUCOSE,POINT OF CARE 77 MG/DL (70-110)
[2016-07-24 20:41] VITALS: BP 133/60
[2016-07-24 22:12] LABS: GLUCOSE COMMENT 1 Received Meds; GLUCOSE,POINT OF CARE 179 MG/DL (70-110)
[2016-07-25 00:06] VITALS: BP 115/49
[2016-07-25 04:21] VITALS: BP 125/54
[2016-07-25] MEDS: LEVOTHYROXINE SODIUM 50 MCG TABLET PO SCH (06:57)
[2016-07-25] MEDS: HydrOXYzine HCL 25 MG TABLET PO SCH ×4 (06:57→18:37)
[2016-07-25 07:16] VITALS: BP 139/76
[2016-07-25 07:27] LABS: GLUCOSE,POINT OF CARE 95 MG/DL (70-110)
[2016-07-25] MEDS: CarBAMazepine 200 MG TABLET PO SCH (08:52)
[2016-07-25] MEDS: SitaGLIPtin PHOSPHATE 25 MG TABLET PO SCH (08:52)
[2016-07-25] MEDS: DILTIAZEM HCL CD 180 MG ER CAPSULE PO SCH (08:52)
[2016-07-25] MEDS: PANTOPRAZOLE SODIUM 40 MG/VIAL IVP SCH (08:53)
[2016-07-25] MEDS: BUMETANIDE 0.25 MG/ML 10 ML VIAL IVP SCH (08:54)
[2016-07-25] MEDS: CARBAMIDE PEROXIDE 6.5% 15 ML OTIC SOLUTION AU SCH (08:55)
[2016-07-25] MEDS: VITAMINS A & D 60 GM OINTMENT TP SCH (08:56)
[2016-07-25] MEDS: MUPIROCIN CALCIUM 2% 22 GM OINTMENT NASAL SCH ×2 (08:56→18:35)
[2016-07-25] MEDS: MINERAL OIL/PETROLATUM 120 GM CREAM TP SCH (08:56)
[2016-07-25] MEDS: EPOETIN ALFA 10,000 UNITS/ML VIAL SQ SCH (08:57)
[2016-07-25] MEDS: SENNA/DOCUSATE SODIUM 187-50 MG TABLET PO SCH (09:00)
[2016-07-25] MEDS ORDERED: VANCOMYCIN HCL 1 GM/D5% WATER 200 ML IV ONE (11:00)
[2016-07-25 12:30] VITALS: BP 134/61
[2016-07-25] MEDS: INSULIN ASPART 100 UNITS/ML SQ PRN ×2 (12:37→18:39)
[2016-07-25] MEDS ORDERED: SODIUM CHLORIDE 0.9% 250 ML IV ONE (12:43)
[2016-07-25] MEDS: AMINO ACIDS/PROTEIN HYDROLYS 30 ML TUBE PO SCH ×2 (12:52→18:35)
[2016-07-25 15:36] VITALS: BP 123/52
[2016-07-25] MEDS: MetroNIDAZOLE 500 MG TABLET PO SCH ×2 (16:00→18:35)
[2016-07-25] MEDS: ATORVASTATIN CALCIUM 20 MG TABLET PO SCH (18:35)
[2016-07-25] MEDS: VITAMIN B COMP/VIT C/FOLIC ACID CAPSULE NG SCH (18:35)
[2016-07-25] MEDS: FERROUS SULFATE 325 MG EC TABLET PO SCH (18:35)
[2016-07-25 19:22] LABS: GLUCOSE COMMENT 1 Received Meds; GLUCOSE,POINT OF CARE 176 MG/DL (70-110)
[2016-07-25] MEDS ORDERED: METR500 PO (19:23)
[2016-07-25 19:32] LABS: GLUCOSE,POINT OF CARE 170 MG/DL (70-110)
[2016-07-25 20:20] VITALS: BP 129/56
== END 2016-07-25 22:20 | DRG 720 ==
LOC: EMS 01:59 → ICU 05:24 → 5N 16:40
PROVIDERS: ADMIT Family Medicine; ATTEND Family Medicine
PROC: 5A1D60Z (ICD-10-PCS; principal; 2016-07-14)
PROC: 30233N1 Transfusion of Nonautologous Red Blood Cells into Peripheral Vein, Percutaneous Approach (ICD-10-PCS; 2016-07-15)
PROC: 5A09357 Assistance with Respiratory Ventilation, Less than 24 Consecutive Hours, Continuous Positive Airway Pressure (ICD-10-PCS; 2016-07-15)
PROC: 0W993ZZ Drainage of Right Pleural Cavity, Percutaneous Approach (ICD-10-PCS; 2016-07-16)
PROC: 0W9B3ZZ Drainage of Left Pleural Cavity, Percutaneous Approach (ICD-10-PCS; 2016-07-19)
PROC: 02HV33Z Insertion of Infusion Device into Superior Vena Cava, Percutaneous Approach (ICD-10-PCS; 2016-07-20)
PROC: B518ZZA Fluoroscopy of Superior Vena Cava, Guidance (ICD-10-PCS; 2016-07-20)
DX: A41.02 Sepsis due to Methicillin resistant Staphylococcus aureus (principal); J96.01 Acute respiratory failure with hypoxia; I13.2 Hypertensive heart and chronic kidney disease with heart failure and with stage 5 chronic kidney disease, or end stage renal disease; E43 Unspecified severe protein-calorie malnutrition; J90 Pleural effusion, not elsewhere classified; N17.9 Acute kidney failure, unspecified; A04.7 Enterocolitis due to Clostridium difficile; E11.21 Type 2 diabetes mellitus with diabetic nephropathy; N04.9 Nephrotic syndrome with unspecified morphologic changes; G81.94 Hemiplegia, unspecified affecting left nondominant side; N39.0 Urinary tract infection, site not specified; N18.6 End stage renal disease; E03.9 Hypothyroidism, unspecified; E11.22 Type 2 diabetes mellitus with diabetic chronic kidney disease; E87.5 Hyperkalemia; G80.9 Cerebral palsy, unspecified; I50.9 Heart failure, unspecified; M62.422 Contracture of muscle, left upper arm; I45.4 Nonspecific intraventricular block; R53.81 Other malaise; D63.8 Anemia in other chronic diseases classified elsewhere; G40.909 Epilepsy, unspecified, not intractable, without status epilepticus; E78.5 Hyperlipidemia, unspecified; B86 Scabies; E78.00 Pure hypercholesterolemia, unspecified; B96.20 Unspecified Escherichia coli [E. coli] as the cause of diseases classified elsewhere; Z16.24 Resistance to multiple antibiotics; Z88.8 Allergy status to other drugs, medicaments and biological substances; Z79.899 Other long term (current) drug therapy; Z79.82 Long term (current) use of aspirin; Z79.4 Long term (current) use of insulin; Z98.84 Bariatric surgery status; Z68.23 Body mass index [BMI] 23.0-23.9, adult; Z22.322 Carrier or suspected carrier of Methicillin resistant Staphylococcus aureus
CPT/HCPCS: 32555; 36245; 36556; 36561; 51702; 71250; 76770; 76942; 78806; 82271; 82465; 82784; 82805; 82945; 82962; 83036; 83540; 83550; 83605; 83615; 83735; 83986; 84100; 84155; 84156; 84157; 84165; 84166; 84443; 85014; 85018; 86160; 86162; 86334; 86704; 86706; 86850; 86900; 86901; 86920; 87015; 87040; 87070; 87081; 87086; 87101; 87106; 87205; 87324; 87340; 87449; 88108; 88305; 89051; 90935; 92507; 92526; 92610; 93005; 93306; 94640; 94660; 96361; 96365; 96375; 96376; 97112; 97163; 97167; 97530; 99291; A9547; C9113; J0696; J0885; J1644; J1815; J2060; J2250; J2916; J3010; J3370; J3490; J7030; J7040; J7050; J7060; P9016

== ENCOUNTER 2016-08-10 22:53 | Inpatient (IN) | payer MEDICAID ==
[~2016-08-10] VITALS: Ht 152.4 cm; Wt 47.0 kg
[~2016-08-10 22:53] MED LIST: ASPI-556 PO; ATOR20TA86 PO; BUME1TAB30 PO; CARB200T PO; DILT180C63 PO; FERR-89 PO; HYD25 PO; INSU100V SQ; LANS30 PO; LEVO25TA9 PO; METR500 PO; SENN-30 PO; SITA25 PO
[2016-08-10] MEDS ORDERED: CARB200T6 PO (23:06)
[2016-08-10] MEDS ORDERED: AMIN30LI2 PO (23:06)
[2016-08-10] MEDS ORDERED: MUPI1OIN4 NS (23:06)
[2016-08-10] MEDS ORDERED: EPOE10I SQ (23:06)
[2016-08-10] MEDS ORDERED: FOLI0.8T2 PO (23:06)
[2016-08-10] MEDS ORDERED: INSNOV SQ (23:06)
[2016-08-10] MEDS ORDERED: BUME1TAB30 PO (23:06)
[2016-08-10 23:07] LABS: GLUCOSE,POINT OF CARE 76 MG/DL (70-110)
[2016-08-10] MEDS ORDERED: LORazepam 2 MG/ML VIAL IVP ONE (23:15)
[2016-08-10 23:26] LABS: BASOPHILS % (AUTO) 0.4 % (0.0-2.0); EOSINOPHILS % (AUTO) 1.4 % (1.0-6.0); HEMOGLOBIN 13.2 g/dL (12.0-16.0); LYMPHOCYTES # (AUTO) 1.1 K/uL (1.0-4.8); LYMPHOCYTES % (AUTO) 16.5 % (22.0-44.0); MEAN CORPUSCULAR HEMOGLOBIN 28.4 pg (26.0-34.0); MEAN CORPUSCULAR HGB CONC 30.6 G/dL (31.0-37.0); MEAN CORPUSCULAR VOLUME 93 fL (80-100); MONOCYTES # (AUTO) 0.9 K/uL (0.1-1.0); MONOCYTES % (AUTO) 13.6 % (2.0-9.0); NEUTROPHILS # (AUTO) 4.6 K/uL (1.8-7.7); NEUTROPHILS % (AUTO) 68.1 % (40.0-70.0); PLATELET COUNT (AUTO) 242 K/uL (150-450); RED BLOOD CELL COUNT(AUTO) 4.63 MIL/uL (4.00-5.20); RED CELL DISTRIBUTION WIDTH 16.4 % (11.5-14.5); WHITE BLOOD COUNT (AUTO) 6.7 K/uL (4.5-11.0)
[2016-08-10] MEDS ORDERED: CarBAMazepine 200 MG TABLET PO ONE (23:30)
[2016-08-11 00:23] LABS: ABG A-A DIFF O2 83.4 mmHg (10-20.0); ABG BASE EXCESS 3.1 mmol/L (-2.0-3.0); ABG HCO3 26.6 mmol/L (22.0-26.0); ABG OXYHEMOGLOBIN 88.8 % (94.0-100.0); ABG PCO2 47 mmHg (35-45); ABG PH 7.394 (7.35-7.450); TEMPERATURE, FAHRENHEIT, BG 98.6 FAHREN (96.0-98.6)
[2016-08-11 00:24] LABS: ALLEN TEST, BLOOD GAS Positive
[2016-08-11 01:35] LABS: CALCIUM, TOTAL 7.8 mg/dL (8.8-10.5); CREATININE 1.92 mg/dL (0.60-1.30); POTASSIUM 4.1 mmol/L (3.5-5.1)
[2016-08-11 01:43] LABS: LACTIC ACID 0.7 mmol/L (0.4-2.0)
[2016-08-11 01:45] LABS: APPEARANCE,URINE TURBID (CLEAR); GLUCOSE, URINE (UA) NEGATIVE (NEGATIVE); KETONES,URINE TRACE mg/dL (NEGATIVE); LEUKOCYTE ESTERASE ,URINE LARGE (NEGATIVE); OCCULT BLOOD,URINE LARGE (NEGATIVE); PROTEIN,URINE SEE CONFIRM (NEGATIVE)
[2016-08-11] MEDS ORDERED: 0.9% SODIUM CHLORIDE 10 ML SYRINGE IVP PRN (01:45)
[2016-08-11] MEDS ORDERED: ACETAMINOPHEN 325 MG TABLET PO PRN (01:45)
[2016-08-11] MEDS ORDERED: ONDANSETRON HCL 4 MG/2 ML VIAL IVP PRN (01:45)
[2016-08-11 01:46] LABS: ADD UA MICROSCOPIC YES
[2016-08-11 01:48] LABS: SULFOSALICYLIC ACID,URINE 4+ (Negative); WBC,URINE Full Field /HPF (0-5)
[2016-08-11 01:50] LABS: SQUAMOUS EPITHELIAL CELL,UR Few /LPF (None Seen)
[2016-08-11 01:51] LABS: ALBUMIN 1.6 g/dL (3.4-5.0); BILIRUBIN,TOTAL 0.3 mg/dL (0.1-1.0); TOTAL PROTEIN, SERUM 7.2 g/dL (6.4-8.2)
[2016-08-11 03:07] VITALS: BP 146/79
[2016-08-11] MEDS ORDERED: PNEUMOCOCCAL VACCINE POLYVALENT 0.5 ML VIAL [PPSV23] IM ONE (04:15)
[2016-08-11 06:12] LABS: GLUCOSE,POINT OF CARE 70 MG/DL (70-110)
[2016-08-11 08:03] VITALS: BP 127/78
[2016-08-11 11:15] VITALS: BP 138/72
[2016-08-11] MEDS ORDERED: IPRATROPIUM BROMIDE 0.5 MG/2.5 ML NEB SOLUTION NEB PRN (12:00)
[2016-08-11] MEDS ORDERED: ALBUTEROL SULFATE 2.5 MG/0.5 ML NEB SOLUTION NEB PRN (12:00)
[2016-08-11 12:22] LABS: GLUCOSE,POINT OF CARE 80 MG/DL (70-110)
[2016-08-11] MEDS: LEVOTHYROXINE SODIUM 25 MCG TABLET PO SCH (12:30)
[2016-08-11] MEDS: CarBAMazepine 200 MG TABLET PO SCH ×2 (12:30→21:18)
[2016-08-11] MEDS: FERROUS SULFATE 325 MG EC TABLET PO SCH (13:50)
[2016-08-11] MEDS: PANTOPRAZOLE SODIUM 40 MG DR TABLET PO SCH (13:50)
[2016-08-11] MEDS: SENNA 187 MG TABLET PO SCH (13:50)
[2016-08-11] MEDS: VITAMIN B COMP/VIT C/FOLIC ACID CAPSULE PO SCH (13:50)
[2016-08-11] MEDS: SitaGLIPtin PHOSPHATE 25 MG TABLET PO SCH (13:51)
[2016-08-11] MEDS: BUMETANIDE 1 MG TABLET PO SCH ×2 (13:51→21:18)
[2016-08-11] MEDS: DILTIAZEM HCL CD 180 MG ER CAPSULE PO SCH (13:52)
[2016-08-11] MEDS: ALBUTEROL SULFATE 2.5 MG/0.5 ML NEB SOLUTION NEB SCH ×2 (14:43→19:32)
[2016-08-11] MEDS: IPRATROPIUM BROMIDE 0.5 MG/2.5 ML NEB SOLUTION NEB SCH ×2 (14:44→19:32)
[2016-08-11] MEDS ORDERED: SODIUM CHLORIDE 0.9% 500 ML IV ONE (14:58)
[2016-08-11] MEDS ORDERED: ALBUTEROL SULFATE 2.5 MG/0.5 ML NEB SOLUTION NEB SCH ×2 (15:00)
[2016-08-11] MEDS ORDERED: IPRATROPIUM BROMIDE 0.5 MG/2.5 ML NEB SOLUTION NEB SCH ×2 (15:00)
[2016-08-11] MEDS: CefTRIAXone 1 GM/DEXTROSE 50 ML IV SCH (15:02)
[2016-08-11] MEDS: GuaiFENesin [SUGAR-FREE] 200 MG/10 ML SOLUTION UDCUP PO PRN ×2 (15:21→23:25)
[2016-08-11 15:44] VITALS: BP 137/63
[2016-08-11] MEDS ORDERED: INSULIN ASPART 100 UNITS/ML SQ SCH (17:30)
[2016-08-11] MEDS: AMINO ACIDS/PROTEIN HYDROLYS 30 ML TUBE PO SCH (18:00)
[2016-08-11] MEDS: MUPIROCIN CALCIUM 2% 22 GM OINTMENT TP SCH ×2 (18:10→21:18)
[2016-08-11 19:20] VITALS: BP 134/82
[2016-08-11 19:32] LABS: GLUCOSE,POINT OF CARE 131 MG/DL (70-110)
[2016-08-11] MEDS ORDERED: DEXTROSE 50%-WATER 25 GM/50 ML SYRINGE IVP PRN (22:00)
[2016-08-11] MEDS ORDERED: INSULIN ASPART 100 UNITS/ML SQ PRN (22:00)
[2016-08-11] MEDS: HydrOXYzine HCL 25 MG TABLET PO PRN (23:25)
[2016-08-11 23:47] VITALS: BP 123/70
[2016-08-12] MEDS: ALBUTEROL SULFATE 2.5 MG/0.5 ML NEB SOLUTION NEB SCH ×4 (01:44→20:28)
[2016-08-12] MEDS: IPRATROPIUM BROMIDE 0.5 MG/2.5 ML NEB SOLUTION NEB SCH ×4 (01:44→20:28)
[2016-08-12 04:30] VITALS: BP 123/64
[2016-08-12] MEDS: ACETAMINOPHEN 325 MG TABLET PO PRN (04:33)
[2016-08-12 05:47] LABS: GLUCOSE COMMENT 1 Received Meds; GLUCOSE,POINT OF CARE 163 MG/DL (70-110)
[2016-08-12] MEDS: LEVOTHYROXINE SODIUM 25 MCG TABLET PO SCH (05:53)
[2016-08-12 06:02] LABS: GLUCOSE,POINT OF CARE 122 MG/DL (70-110)
[2016-08-12 07:32] VITALS: BP 116/60
[2016-08-12] MEDS ORDERED: SODIUM CHLORIDE 0.9% 2,000 ML IV ONE (07:56)
[2016-08-12] MEDS: HydrOXYzine HCL 25 MG TABLET PO PRN ×2 (08:40→15:02)
[2016-08-12 11:47] LABS: GLUCOSE,POINT OF CARE 97 MG/DL (70-110)
[2016-08-12] MEDS ORDERED: HEPARIN SODIUM,PORCINE 1,000 UNITS/ML VIAL IVP ONE ×3 (13:00→14:43)
[2016-08-12] MEDS: SENNA 187 MG TABLET PO SCH (14:30)
[2016-08-12] MEDS: AMINO ACIDS/PROTEIN HYDROLYS 30 ML TUBE PO SCH ×2 (14:52→18:40)
[2016-08-12] MEDS: CarBAMazepine 200 MG TABLET PO SCH ×2 (15:01→21:05)
[2016-08-12] MEDS: CefTRIAXone 1 GM/DEXTROSE 50 ML IV SCH (15:01)
[2016-08-12] MEDS: DILTIAZEM HCL CD 180 MG ER CAPSULE PO SCH (15:01)
[2016-08-12] MEDS: FERROUS SULFATE 325 MG EC TABLET PO SCH (15:02)
[2016-08-12] MEDS: PANTOPRAZOLE SODIUM 40 MG DR TABLET PO SCH (15:02)
[2016-08-12] MEDS: VITAMIN B COMP/VIT C/FOLIC ACID CAPSULE PO SCH (15:02)
[2016-08-12] MEDS: SitaGLIPtin PHOSPHATE 25 MG TABLET PO SCH (15:02)
[2016-08-12] MEDS: BUMETANIDE 1 MG TABLET PO SCH ×2 (15:02→21:04)
[2016-08-12] MEDS: ASPIRIN 81 MG EC TABLET PO SCH (15:02)
[2016-08-12] MEDS: MUPIROCIN CALCIUM 2% 22 GM OINTMENT TP SCH ×3 (15:03→21:05)
[2016-08-12 15:10] VITALS: BP 130/75
[2016-08-12 18:37] LABS: GLUCOSE,POINT OF CARE 138 MG/DL (70-110)
[2016-08-12] MEDS: GuaiFENesin [SUGAR-FREE] 200 MG/10 ML SOLUTION UDCUP PO PRN (21:05)
[2016-08-12 21:18] VITALS: BP 130/61
[2016-08-12 22:02] LABS: GLUCOSE,POINT OF CARE 139 MG/DL (70-110)
[2016-08-12 23:54] VITALS: BP 142/73
[2016-08-13] MEDS: IPRATROPIUM BROMIDE 0.5 MG/2.5 ML NEB SOLUTION NEB SCH ×4 (01:53→19:27)
[2016-08-13] MEDS: ALBUTEROL SULFATE 2.5 MG/0.5 ML NEB SOLUTION NEB SCH ×4 (01:53→19:27)
[2016-08-13 04:21] VITALS: BP 124/63
[2016-08-13] MEDS: LEVOTHYROXINE SODIUM 25 MCG TABLET PO SCH (06:17)
[2016-08-13 06:23] LABS: GLUCOSE,POINT OF CARE 86 MG/DL (70-110)
[2016-08-13 06:37] LABS: BASOPHILS # (AUTO) 0.04 K/uL (0.00-0.20); BASOPHILS % (AUTO) 0.6 % (0.0-2.0); EOSINOPHILS # (AUTO) 0.19 K/uL (0.00-0.70); EOSINOPHILS % (AUTO) 2.98 % (1.0-6.0); HEMATOCRIT 35.5 % (36-46); HEMOGLOBIN 11.1 g/dL (12.0-16.0); LYMPHOCYTES % (AUTO) 15.8 % (22.0-44.0); MEAN CORPUSCULAR HEMOGLOBIN 29.3 pg (26.0-34.0); MEAN CORPUSCULAR HGB CONC 31.2 G/dL (31.0-37.0); MEAN CORPUSCULAR VOLUME 94 fL (80-100); MONOCYTES # (AUTO) 0.8 K/uL (0.1-1.0); NEUTROPHILS # (AUTO) 4.4 K/uL (1.8-7.7); NEUTROPHILS % (AUTO) 68.6 % (40.0-70.0); PLATELET COUNT (AUTO) 194 K/uL (150-450); RED BLOOD CELL COUNT(AUTO) 3.78 MIL/uL (4.00-5.20); RED CELL DISTRIBUTION WIDTH 15.4 % (11.5-14.5); WHITE BLOOD COUNT (AUTO) 6.5 K/uL (4.5-11.0)
[2016-08-13 06:52] LABS: CALCIUM, TOTAL 7.9 mg/dL (8.8-10.5); CREATININE 2.3 mg/dL (0.60-1.30); POTASSIUM 3.8 mmol/L (3.5-5.1)
[2016-08-13 07:28] VITALS: BP 113/59
[2016-08-13] MEDS: BUMETANIDE 1 MG TABLET PO SCH (08:35)
[2016-08-13] MEDS: DILTIAZEM HCL CD 180 MG ER CAPSULE PO SCH (08:35)
[2016-08-13] MEDS: PANTOPRAZOLE SODIUM 40 MG DR TABLET PO SCH (08:35)
[2016-08-13] MEDS: ASPIRIN 81 MG EC TABLET PO SCH (08:35)
[2016-08-13] MEDS: VITAMIN B COMP/VIT C/FOLIC ACID CAPSULE PO SCH (08:35)
[2016-08-13] MEDS: SitaGLIPtin PHOSPHATE 25 MG TABLET PO SCH (08:35)
[2016-08-13] MEDS: CarBAMazepine 200 MG TABLET PO SCH (08:35)
[2016-08-13] MEDS: FERROUS SULFATE 325 MG EC TABLET PO SCH (08:36)
[2016-08-13] MEDS: ACETAMINOPHEN 325 MG TABLET PO PRN (08:36)
[2016-08-13] MEDS: SENNA 187 MG TABLET PO SCH (08:36)
[2016-08-13] MEDS: HydrOXYzine HCL 25 MG TABLET PO PRN (08:47)
[2016-08-13] MEDS ORDERED: EPOETIN ALFA 10,000 UNITS/ML VIAL SQ SCH (09:00)
[2016-08-13] MEDS: MUPIROCIN CALCIUM 2% 22 GM OINTMENT TP SCH ×2 (09:00→16:00)
[2016-08-13] MEDS ORDERED: GADOBUTROL 1 MMOL/ML 10 ML VIAL IVP ONE (09:41)
[2016-08-13 11:34] VITALS: BP 124/64
[2016-08-13] MEDS: AMINO ACIDS/PROTEIN HYDROLYS 30 ML TUBE PO SCH (12:00)
[2016-08-13 12:32] LABS: GLUCOSE,POINT OF CARE 82 MG/DL (70-110)
[2016-08-13] MEDS: CefTRIAXone 1 GM/DEXTROSE 50 ML IV SCH (14:00)
[2016-08-13 17:38] VITALS: BP 141/70
[2016-08-13 17:47] LABS: GLUCOSE,POINT OF CARE 82 MG/DL (70-110)
[2016-08-13] MEDS ORDERED: DiphenhydrAMINE HCL 50 MG/ML VIAL IVP ONE (18:28)
[2016-08-13] MEDS ORDERED: HEPARIN SODIUM,PORCINE 1,000 UNITS/ML VIAL IVP ONE (18:28)
[2016-08-13 20:02] VITALS: BP 123/72
== END 2016-08-13 20:45 | DRG 54 ==
LOC: EMS 22:57 → 6N 08-11 02:07
PROVIDERS: ADMIT Family Medicine; ATTEND Family Medicine
PROC: 5A1D60Z (ICD-10-PCS; principal; 2016-08-12)
DX: R51 Headache (principal); E43 Unspecified severe protein-calorie malnutrition; I13.2 Hypertensive heart and chronic kidney disease with heart failure and with stage 5 chronic kidney disease, or end stage renal disease; E11.22 Type 2 diabetes mellitus with diabetic chronic kidney disease; N18.6 End stage renal disease; E86.0 Dehydration; I50.9 Heart failure, unspecified; E78.00 Pure hypercholesterolemia, unspecified; E03.9 Hypothyroidism, unspecified; E83.51 Hypocalcemia; D64.9 Anemia, unspecified; E78.5 Hyperlipidemia, unspecified; G40.909 Epilepsy, unspecified, not intractable, without status epilepticus; N39.0 Urinary tract infection, site not specified; G80.8 Other cerebral palsy; G93.0 Cerebral cysts; L89.90 Pressure ulcer of unspecified site, unspecified stage; Z88.8 Allergy status to other drugs, medicaments and biological substances; Z79.82 Long term (current) use of aspirin; Z79.4 Long term (current) use of insulin; Z79.899 Other long term (current) drug therapy; Z98.84 Bariatric surgery status; Z68.20 Body mass index [BMI] 20.0-20.9, adult; Z99.2 Dependence on renal dialysis
CPT/HCPCS: 70450; 70553; 71020; 82805; 82962; 83605; 87086; 87340; 90935; 93005; 94640; 99285; A9585; J0696; J0885; J1200; J1644; J1815; J2060; J7030; J7040